=== PATIENT | female | born 1945 | race Caucasian/White ===

== ENCOUNTER 2018-07-24 06:38 | Day surgery (SDC) | payer MEDICARE, OTHER ==
[~2018-07-24] VITALS: Ht 165.1 cm; Wt 57.3 kg
[~2018-07-24 06:38] MED LIST: BUPR150SR PO; HYDR12.530 PO; LISI40TA4 PO; METO-408 PO; TRAM50TA4 PO; TRAZ-184 PO
[2018-07-24] MEDS ORDERED: SODIUM CHLORIDE 0.9% 1,000 ML IV ONE ×2 (06:40→07:00)
[2018-07-24 07:14] LABS: BASOPHILS % (AUTO) 0.8 % (0.0-2.0); EOSINOPHILS % (AUTO) 6.1 % (1.0-6.0); HEMATOCRIT 39.4 % (36-46); HEMOGLOBIN 12.5 g/dL (12.0-16.0); LYMPHOCYTES # (AUTO) 2.4 K/uL (1.0-4.8); LYMPHOCYTES % (AUTO) 31.6 % (22.0-44.0); MEAN CORPUSCULAR HEMOGLOBIN 28.1 pg (26.0-34.0); MEAN CORPUSCULAR HGB CONC 31.8 G/dL (31.0-37.0); MEAN CORPUSCULAR VOLUME 88 fL (80-100); MONOCYTES # (AUTO) 0.8 K/uL (0.1-1.0); MONOCYTES % (AUTO) 10.8 % (2.0-9.0); NEUTROPHILS # (AUTO) 3.9 K/uL (1.8-7.7); NEUTROPHILS % (AUTO) 50.7 % (40.0-70.0); PLATELET COUNT (AUTO) 390 K/uL (150-450); RED BLOOD CELL COUNT(AUTO) 4.47 MIL/uL (4.00-5.20); RED CELL DISTRIBUTION WIDTH 14.8 % (11.5-14.5)
[2018-07-24 07:24] LABS: CALCIUM, TOTAL 8.2 mg/dL (8.8-10.5); CREATININE 1.4 mg/dL (0.60-1.30); POTASSIUM 4.1 mmol/L (3.5-5.1)
[2018-07-24 07:26] LABS: INR 1.1 (0.9-1.1); PROTHROMBIN TIME 11.4 SEC (9.4-11.6)
[2018-07-24] MEDS ORDERED: TRAM50TA4 PO (07:33)
[2018-07-24] MEDS ORDERED: CARV12 PO (07:33)
[2018-07-24] MEDS ORDERED: ATOR40TA28 PO (07:33)
[2018-07-24] MEDS ORDERED: AMLO-512 PO (07:33)
[2018-07-24] MEDS ORDERED: ARIP10TA8 PO (07:33)
[2018-07-24] MEDS ORDERED: TOLT1TAB13 PO (07:33)
[2018-07-24] MEDS ORDERED: SERT100T12 PO (07:33)
[2018-07-24] MEDS ORDERED: LIDOCAINE/PF 1% 30 ML VIAL ONE (08:46)
[2018-07-24] MEDS ORDERED: IOHEXOL 300 MG/ML 150 ML VIAL ONE (08:46)
[2018-07-24] MEDS ORDERED: SODIUM BICARBONATE 50 MEQ/50 ML VIAL ONE (08:46)
[2018-07-24] MEDS ORDERED: HEPARIN SODIUM 1000 UNITS/NS 1,000 ML ONE (08:46)
[2018-07-24 09:15] VITALS: BP 117/86
[2018-07-24] MEDS ORDERED: FentaNYL CITRATE-PF 100 MCG/2 ML VIAL ONE (09:27)
[2018-07-24] MEDS ORDERED: MIDAZOLAM HCL 2 MG/2 ML VIAL ONE (09:27)
[2018-07-24 10:01] VITALS: BP 148/60
[2018-07-24] MEDS ORDERED: HEPARIN SODIUM 2,000 UNITS in HEPARIN SODIUM 1000 UNITS/NS 1,000 ML IARTER ONE (10:02)
[2018-07-24] MEDS ORDERED: FentaNYL CITRATE-PF 100 MCG/2 ML VIAL IVP ONE (10:15)
[2018-07-24] MEDS ORDERED: MIDAZOLAM HCL 2 MG/2 ML VIAL IVP ONE (10:15)
[2018-07-24] MEDS ORDERED: LIDOCAINE 1% 30 ML/SOD BICARB 8.4% 4 ML SQ ONE (10:15)
[2018-07-24] MEDS ORDERED: IOHEXOL 300 MG/ML 150 ML VIAL IARTER ONE (10:15)
== END 2018-07-24 14:10 | disposition home or self-care (01) ==
LOC: CATHLAB 06:38
PROVIDERS: ATTEND Internal Medicine Cardiovascular Disease
DX: I25.10 Atherosclerotic heart disease of native coronary artery without angina pectoris (principal); I10 Essential (primary) hypertension; J44.9 Chronic obstructive pulmonary disease, unspecified; E78.00 Pure hypercholesterolemia, unspecified; Z88.0 Allergy status to penicillin; Z88.8 Allergy status to other drugs, medicaments and biological substances; Z87.891 Personal history of nicotine dependence; Z98.890 Other specified postprocedural states; Z96.642 Presence of left artificial hip joint; Z86.79 Personal history of other diseases of the circulatory system; Z86.73 Personal history of transient ischemic attack (TIA), and cerebral infarction without residual deficits
CPT/HCPCS: 36415; 80048; 85025; 85610; 85730; 93005; 93458; 99152; 99153; J1644; J2250; J3010; J3490 ×2; J7030; Q9967